=== PATIENT | female | born 1985 | race Two or more races ===

== ENCOUNTER 2017-07-22 05:10 | Day surgery (SDC) | payer MEDICARE ==
[~2017-07-22] VITALS: Ht 160 cm; Wt 112.5 kg
--- NOTE | ~2017-07-22 | OP ---
PATIENT NAME: JUAN DIEGO DE PAZ MEDICAL RECORD: [id number] :84 LOCATION:D.YUDY ADMISSION DATE: SURGEON: GHASSAN SANZ MD DATE OF OPERATION: 07/22/2017 PREOPERATIVE DIAGNOSES: 1. Functioning left arm arteriovenous fistula, placed by me in past. 2. 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 POSTOPERATIVE DIAGNOSES: 1. Functioning left arm arteriovenous fistula, placed by me in past. 2. 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 PROCEDURES: 1. Balloon angioplasty of left subclavian venous stent, 10 mm. 2. Nonselective fistulogram. 3. Selective left subclavian venogram. 4. Placement of antegrade sheath, 7-Estonian, left arm arteriovenous fistula. 5. Immediate surgeon interpretation of the fluoroscopic images. SURGEON: Ghassan Sanz MD SIMULATION EDUCATOR: None. BLOOD LOSS: Minimal. ANESTHESIA: General. COMPLICATIONS: None. The risks, possible complications and alternatives to the procedure were explained to the patient. She elected to proceed. I specifically discussed with her the possibility we will be unable to recanalize the left subclavian venous occlusion and in that event, I would stop and we would not do any additional procedure as the patient has a functioning fistula and I certainly would not want to turn this into a situation where she loses that fistula. No radiologist was present for this procedure. Static fluoroscopic images were obtained as well as cine images. The surgeon interpretation of these radiographic images is dictated within the body of this operative note. OPERATIVE COURSE: The patient was conveyed to the operating room electively on 07/22/2017. General anesthesia was induced by the anesthesia staff. The left arm was abducted at 90 degrees to the patient's trunk. The left arm was sterilely prepped and draped. Under ultrasonographic guidance, I percutaneously accessed the cephalic vein in an antegrade fashion. Utilizing micropuncture technique, a 7-Estonian dilator sheath was then placed. The sheath was sutured in place with a 3-0 Vicryl. Through the sheath, a nonselective fistulogram was performed and this revealed a widely patent cephalic vein. Additional fistulogram images were obtained in the area overlying the apex of the left lung. This revealed that the contrast dye proceeded down along the anterior abdominal wall through a large tributary and none of it proceeded in an antegrade fashion through the subclavian vein. I advanced an 0.035 Glidewire. Over the 0.035 Glidewire, an angled diagnostic OPERATIVE REPORT [id number] JUAN DIEGO DE PAZ catheter was advanced. Through the angled diagnostic catheter, a selective subclavian venogram was performed. Glidewire was placed through the angled diagnostic catheter. Utilizing the floppy end of the Glidewire and then the stiff end, I tried to create a passage through the occluded stent. I was not successful. Through the angled diagnostic catheter, I advanced an Amplatz wire. Utilizing the stiff end of the Amplatz wire, I tried to create a pass through the occluded stent. I was not successful. Over the Amplatz wire, I advanced a Quick-Cross catheter. Utilizing the Quick-Cross catheter and the Amplatz wire, I tried to traverse the occluded stent and was unsuccessful. Utilizing the Quick-Cross catheter and 0.035 Glidewire, I was able to traverse the occluded stent. I then advanced the Quick-Cross catheter. Through the Quick-Cross catheter, another selective subclavian venogram was performed and this revealed extravasation of contrast. I then abandoned this approach. The endovascular hardware was removed. The puncture site in the left arm was closed with a single pursestring suture of 3-0 Vicryl. A sterile dressing was applied. There was still an excellent thrill within the fistula. The patient was then extubated and conveyed to post-anesthesia care unit. I am going to not plan for any further procedure. When the patient loses access, then we will have to figure out where we can place a new access. Alternatively, the patient's lose gives it away and she may be able to get a kidney transplant. This would be very nice and hopefully her current access can hold out until she receives a transplant. TRANSINT:[id number] Voice Confirmation ID: [id number] DOCUMENT ID: [id number] GHASSAN SANZ MD at 1126 CC: STEWART PARSONS MD [id number] DICTATION DATE: 07/22/171912 ORDER DISPATCHER: 07/23/1712 [facility] 07/22/17 [facility] [address] [place] [address]
[~2017-07-22 05:10] MED LIST: BYSTOLIC5 MG PO; ERRIN0.35 MG PO; LASIX80 MG PO; METOPROLOL TART50 MG PO; PHOSLO667 MG PO; RENVELA800 MG PO; ZESTRIL40 MG PO
[2017-07-22 06:39] LABS: HEMATOCRIT 34.5 % (36.0-48.0); HEMOGLOBIN 11.3 g/dL (12-16); MCH 31.1 pg (26.0-34.0); MCHC 32.8 g/dL (31.0-37.0); MEAN PLATELET VOLUME 8.6 fL (7.4-10.4); RBC 3.63 10x6/uL (4.00-5.40); RDW 13.9 % (11.5-14.5); WBC 8.1 10x3/uL (4.8-10.8)
[2017-07-22] MEDS ORDERED: COREG25 MG PO (06:46)
[2017-07-22] MEDS ORDERED: FERRIC CITRATE210 MG PO (06:47)
[2017-07-22] MEDS ORDERED: REQUIP0.25 MG PO (06:48)
[2017-07-22] MEDS ORDERED: VERELAN180 MG PO (06:49)
[2017-07-22 06:56] VITALS: Ht 160 cm; Wt 112.5 kg
[2017-07-22 07:06] LABS: CARBON DIOXIDE 30.6 mmol/L (21.0-32.0); CREATININE - SERUM 6.1 mg/dL (0.6-1.3); POTASSIUM - SERUM 4.6 mmol/L (3.5-5.1)
[2017-07-22 07:19] LABS: HCG URINE NEGATIVE (NEGATIVE)
== END 2017-07-22 12:30 | disposition home or self-care (01) ==
LOC: D.OPS 05:10 → D.PAN 08:00 → D.OPS 08:00
PROVIDERS: Anesthesiology; Surgery
DX: T82.856A Stenosis of peripheral vascular stent, initial encounter (principal); N18.6 End stage renal disease; Z99.2 Dependence on renal dialysis; Z01.812 Encounter for preprocedural laboratory examination

== ENCOUNTER 2017-12-27 06:10 | Day surgery (SDC) | payer MEDICARE ==
[~2017-12-27] VITALS: Ht 157.5 cm; Wt 121.7 kg
[~2017-12-27 06:10] MED LIST changes: +COREG25 MG PO; +FERRIC CITRATE210 MG PO; +REQUIP0.25 MG PO; +VERELAN180 MG PO
[2017-12-27 06:37] LABS: BASOPHILS 0.2 % (0-2); EOSINOPHILS 2.9 % (0-7); HEMATOCRIT 34.4 % (36.0-48.0); HEMOGLOBIN 11.5 g/dL (12-16); IMMATURE GRANULOCYTES 0.1 % (0-5); LYMPHOCYTES 21.5 % (15-50); MCH 32.2 pg (26.0-34.0); MCHC 33.4 g/dL (31.0-37.0); MCV 96.4 fL (80.0-100.0); MEAN PLATELET VOLUME 8.6 fL (7.4-10.4); MONOCYTES 6.6 % (2-11); NEUTROPHILS 68.7 % (40-80); PLATELET COUNT 210 10x3/uL (130-400); RBC 3.57 10x6/uL (4.00-5.40); RDW 12.5 % (11.5-14.5); WBC 9.5 10x3/uL (4.8-10.8)
[2017-12-27 06:49] LABS: APTT 32.9 SECONDS (22.8-39.4)
[2017-12-27 06:53] LABS: INR 1.12 (0.85-1.17)
[2017-12-27] MEDS ORDERED: RENVELA800 MG PO (07:02)
[2017-12-27] MEDS ORDERED: PHOSLO667 MG PO (07:02)
[2017-12-27 07:04] LABS: HCG SERUM NEGATIVE (NEGATIVE)
[2017-12-27] MEDS ORDERED: IMODIUM2 MG PO (07:04)
[2017-12-27] MEDS ORDERED: ERRIN0.35 MG PO (07:05)
[2017-12-27] MEDS ORDERED: ZOFRAN4 MG PO (07:06)
[2017-12-27 07:07] LABS: ANION GAP 13.8 mmol/L (8-16); CALCIUM 9.4 mg/dL (8.5-10.1); CARBON DIOXIDE 27.2 mmol/L (21.0-32.0); CREATININE - SERUM 7.7 mg/dL (0.6-1.3)
[2017-12-27 07:14] VITALS: Ht 157.5 cm; Wt 121.7 kg
--- NOTE | 2017-12-27 13:57 | NUR ---
9697 NAUSEA CONTINUES. PT STATES SHE IS ALSO HAVING DRY HEAVES. PHENERGAN 12.5MG IM TO RIGHT HIP. INFORMED AN IM INJECTION WILL TAKE A LITTLE WHILE TO EASE NAUSEA. Emi PADILLA R.N.
--- NOTE | 2018-03-04 17:01 | OP ---
PATIENT NAME: JUAN DIEGO DE PAZ MEDICAL RECORD: [id number] :84 LOCATION:D.OPS ADMISSION DATE: SURGEON: JANICE WOLF MD DATE OF OPERATION: 12/27/2017 REFERRING PHYSICIAN: Drew Harding MD PREOPERATIVE DIAGNOSIS: ESRD. POSTOPERATIVE DIAGNOSIS: ESRD. OPERATION PERFORMED: Laparoscopic implantation of peritoneal dialysis catheter with subcutaneous extension. ANESTHESIA: General endotracheal REFERRING PHYSICIAN: Drew Harding MD PREOPERATIVE NOTE: This 32-year-old morbidly obese white female patient has end-stage renal disease and has been on hemodialysis via a left upper extremity AV fistula for about 8 years, but she is interested in changing the peritoneal dialysis. She is brought to the operating room as an outpatient for a laparoscopic PD catheter insertion. I plan to use a Merit catheter with subcutaneous extension for comfortable exit site in the right upper quadrant. DESCRIPTION OF PROCEDURE: Under general endotracheal anesthesia, the patient was placed in supine position, the abdomen were prepped and draped in a sterile manner. The abdomen was accessed with a 5 mm port, placed through a small incision in the left upper quadrant. Pneumoperitoneum was established with carbon dioxide. A 5-mm laparoscope was utilized. I found the patient to have a generally clear abdomen. There were adhesions of the uterus to the pelvic side page, but no other significant adhesion problem and no hernias. A second 5-mm port was placed in the left lower quadrant. I made an incision to the right of the midline as per the stencils, which comes with the catheter and I made a second incision to the right of the midline in the midepigastric area. The needle was inserted then through the anterior rectus sheath and kept within the rectus muscle parallel to the peritoneum as far as possible before entering the peritoneum. This was done to establish a tract such that her catheter would be directed downward into the pelvis. A guidewire and peel-away introducer sheath were utilized and the catheter inserted and positioned appropriately. Measurements were made and the second extension catheter was shortened and the 2 were connected then with the provided titanium connector and 2-0 Prolene ties. The Dacron felt cuff was pushed into the rectus sheath and a pursestring suture closed the rectus there around the catheter that was with 0 Vicryl. The catheter then was tunneled from the upper paramedian incision out to the expected exit point in the right upper quadrant. This left the Dacron felt cuff a good 2-3 cm above the exit site itself. The catheter was flushed and aspirated and functioned well. The wounds were closed with interrupted 3-0 Vicryl and running intracuticular 4-0 Monocryl and Dermabond glue. They were dressed with Maxorb Ag, Tegaderm, and Cavilon skin prep. The catheter exit site was dressed with a chlorhexidine patch and Tegaderm and the coil and the catheter then coiled and covered with an additional dressing. The patient was awakened and taken to the recovery room in stable condition. Blood loss was minimal, none was replaced. Sponges, instruments, and needles were accounted for. No drain was utilized. No specimen was submitted for histopathology. OPERATIVE REPORT [id number] JUAN DIEGO DE PAZ Note, the patient did not have a significant omentum and none was in the pelvis, so she did not need an omentopexy. TRANSINT:[id number] Voice Confirmation ID: [id number] DOCUMENT ID: [id number] CC: [facility] in [place], peritoneal dialysis nurse JANICE WOLF MD at 1701 CC: DREW HARDING [id number] DICTATION DATE: 02/23/18 1301 CLIP LOADING MACHINE ADJUSTER: 02/23/18 1515 [facility] 12/27/17 [id number] [place] [address]
== END 2017-12-27 16:30 | disposition home or self-care (01) ==
LOC: D.OPS 06:10
PROVIDERS: Anesthesiology; Surgery
DX: N18.6 End stage renal disease (principal); E66.01 Morbid (severe) obesity due to excess calories

== ENCOUNTER 2018-08-15 06:32 | Day surgery (SDC) | payer MEDICARE ==
[~2018-08-15 06:32] MED LIST changes: +IMODIUM2 MG PO; +ZOFRAN4 MG PO
[2018-08-15 07:10] LABS: CALCIUM 10.4 mg/dL (8.5-10.1); CARBON DIOXIDE 29.8 mmol/L (21.0-32.0); CREATININE - SERUM 8.2 mg/dL (0.6-1.3); POTASSIUM - SERUM 3.8 mmol/L (3.5-5.1)
[2018-08-15 07:18] LABS: BASOPHILS 0.2 % (0-2); EOSINOPHILS 2.6 % (0-7); HEMATOCRIT 32.7 % (36.0-48.0); HEMOGLOBIN 10.7 g/dL (12-16); IMMATURE GRANULOCYTES 0.2 % (0-5); INR 1.16 (0.85-1.17); LYMPHOCYTES 18.9 % (15-50); MCH 31.9 pg (26.0-34.0); MCHC 32.7 g/dL (31.0-37.0); MCV 97.6 fL (80.0-100.0); MEAN PLATELET VOLUME 8.9 fL (7.4-10.4); MONOCYTES 3.7 % (2-11); NEUTROPHILS 74.4 % (40-80); PLATELET COUNT 232 10x3/uL (130-400); PROTIME 14.3 SECONDS (11.6-15.0); RBC 3.35 10x6/uL (4.00-5.40); RDW 14.3 % (11.5-14.5); WBC 12.4 10x3/uL (4.8-10.8)
[2018-08-15 07:25] VITALS: BMI 40.8
[2018-08-15 07:27] LABS: HCG SERUM NEGATIVE (NEGATIVE)
--- NOTE | 2018-08-15 12:37 | NUR ---
REPORT TAKEN FROM Amadeo POSADAS RN. PATIENT CARE ASSUMED AT THIS TIME.
[2018-08-15] MEDS ORDERED: ULTRAM50 MG PO (12:41)
--- NOTE | 2018-08-15 15:55 | NUR ---
1420 IV DC'D. CATHETER INTACT. PRESSURE HELD UNTIL BLEEDING CEASED. BANDAID APPLIED.
--- NOTE | 2018-08-18 11:43 | OP ---
PATIENT NAME: JUAN DIEGO BRUNSON MEDICAL RECORD: [id number] :84 LOCATION:D.OPS ADMISSION DATE: SURGEON: JANICE WOLF MD DATE OF OPERATION: 08/15/2018 REFERRING PHYSICIAN: Drew Harding MD PREOPERATIVE DIAGNOSIS: Failure of peritoneal dialysis. POSTOPERATIVE DIAGNOSIS: Failure of peritoneal dialysis. OPERATION PERFORMED: Removal of peritoneal dialysis catheter. SURGEON: Janice Wolf MD ANESTHESIA: General with LMA per GLASS BLOCK BENDER. PREOPERATIVE NOTE: Ms. Brunson is a 33-year-old obese female with end-stage renal disease, who has "not done well" with peritoneal dialysis and is to have her peritoneal dialysis catheter removed today. DESCRIPTION OF PROCEDURE: Under general anesthesia in supine position, the patient was prepped and draped in sterile manner. One incision was made over the upper end of her dialysis catheter, which had an exit site in the right upper quadrant. I exposed the most superficial of 2 Dacron felt cuffs. I also dissected down to a connector as this was a Merit catheter with an upper abdominal extension. I removed the connector and external portion including the shallow cuff. I then reopened the incision at the level of the umbilicus. The umbilicus was surgically absent. The incision was reopened and the catheter exposed and dissection along the catheter yielded the second Dacron felt cuff, which was superficial to the anterior rectus sheath. The tissues were divided with electrocautery and the catheter was removed in toto. The wounds were then irrigated with saline and closed with few interrupted inverted 3-0 Vicryl and surgical stew. They were dressed with Maxorb Ag, Tegaderm, and Cavilon skin prep. The patient was awakened and taken to the recovery room. Blood loss during the operation was trivial. Sponges, instruments, and needles were accounted for. No drain was used and no surgical specimen was submitted for histopathology. The PD catheter was discarded. We will plan for Ms. Brunson to go home today and return to see me in my office in about 2 weeks. Meanwhile, she is to keep the operative incisions clean and dry. She can leave the original operative dressings on for about a week, then she can remove them, and then she should keep the incisions covered with clean and dry sterile gauze dressings. She will resume her usual diet, medications, and activities. She is given a prescription for Toradol. TRANSINT:[id number] Voice Confirmation ID: [id number] DOCUMENT ID: [id number] OPERATIVE REPORT [id number] JUAN DIEGO BRUNSON JAMES MD at 1143 CC: DREW HARDING [id number] DICTATION DATE: 08/15/18 1253 IT TRAINEE: 08/15/18 1334 [facility] 08/15/18 [place] [id number]
== END 2018-08-15 14:30 | disposition home or self-care (01) ==
LOC: D.OPS 06:32
PROVIDERS: Anesthesiology; ATTEND Internal Medicine Nephrology
DX: T85.691A Other mechanical complication of intraperitoneal dialysis catheter, initial encounter (principal); N18.6 End stage renal disease; Z99.2 Dependence on renal dialysis; E66.9 Obesity, unspecified; Z01.812 Encounter for preprocedural laboratory examination